=== PATIENT | male | born 1975 | race American Indian/Alaskan Native ===

== ENCOUNTER 2021-02-08 19:06 | Emergency (ER) | payer SELFPAY ==
[2021-02-09] MEDS ORDERED: ACETAMINOPHEN 500 MG TAB PO ONE (04:58)
[2021-02-09] MEDS ORDERED: IBUPROFEN 600 MG TAB PO ONE (04:58)
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
[2021-02-09 05:50] VITALS: BP 144/90
== END 2021-02-09 05:57 | disposition home or self-care (01) ==
LOC: ED 19:06
DX: S39.012A Strain of muscle, fascia and tendon of lower back, initial encounter (principal); S86.911A Strain of unspecified muscle(s) and tendon(s) at lower leg level, right leg, initial encounter; I10 Essential (primary) hypertension; Z79.899 Other long term (current) drug therapy; X58.XXXA Exposure to other specified factors, initial encounter; Y93.89 Activity, other specified; Y92.89 Other specified places as the place of occurrence of the external cause; Y99.8 Other external cause status
CPT/HCPCS: 99283

== ENCOUNTER 2021-09-04 03:40 | Emergency (ER) | payer SELFPAY ==
[2021-09-04] MEDS ORDERED: LIDOCAINE (4%) 40 MG/ML TOPICAL SOLN 50 ML BOTTLE TP ONE (04:38)
[2021-09-04] MEDS ORDERED: METOCLOPRAMIDE 10 MG TAB PO ONE (04:38)
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
[2021-09-04 05:09] LABS: Basophils % (Auto) 1.3 % (0.0-1.8); Eosinophils # (Auto) 0.2 K/mm3 (0.0-0.4); Eosinophils % (Auto) 4.6 % (0.0-4.3); Hematocrit 40.2 % (35.5-45.6); Hemoglobin 12.6 gm/dl (11.8-15.2); Mean Corpuscular HGB Conc 31 % (32-34); Mean Corpuscular Volume 80 fl (84-94); Monocytes # (Auto) 0.6 K/mm3 (0.0-0.8); Monocytes % (Auto) 14.6 % (0.0-7.3); Platelet Count 317 K/mm3 (140-440); Red Blood Count 5.05 M/mm3 (3.65-5.03); Red Cell Distribution Width 16.5 % (13.2-15.2)
[2021-09-04 05:23] LABS: Alanine Aminotransferase 31 units/L (7-56); Albumin 4.2 g/dL (3.9-5); BUN/Creatinine Ratio 21; Blood Urea Nitrogen 21 mg/dL (9-20); Calcium 9.5 mg/dL (8.4-10.2); Hemolysis Index 7
[2021-09-04] MEDS ORDERED: LACTATED RINGERS 2,000 ML IV ONE (05:30)
--- NOTE | 2021-09-04 06:00 | Cat Scan Report ---
CT head without contrast INDICATION : headache. TECHNIQUE: Axial imaging performed from the skull apex through the skull base without the use of con trast. All CT scans at this location are performed using CT dose reduction for ALARA by means of aut omated exposure control. COMPARISON: None FINDINGS: Parenchyma: No mass, stroke or hemorrhage. Mild atrophy for age. Ventricles: Ventricles are normal in size and appear symmetric. Soft tissues: Soft tissues including the orbits appear normal. Bones: No acute osseous abnormality. Sinuses: Sinuses and mastoid air cells are clear. IMPRESSION: Mild atrophy for age. Signer Name: Juanito Nowak MD Signed: 09/04/2021 5:56 AM Workstation Name: [id number]
[2021-09-04 06:02] VITALS: BP 136/88
== END 2021-09-04 07:13 | disposition home or self-care (01) ==
LOC: ED 03:40
DX: R51.9 Headache, unspecified (principal); R60.9 Edema, unspecified; R74.8 Abnormal levels of other serum enzymes; R79.89 Other specified abnormal findings of blood chemistry; D72.819 Decreased white blood cell count, unspecified; I10 Essential (primary) hypertension; F17.200 Nicotine dependence, unspecified, uncomplicated
CPT/HCPCS: 36415; 70450; 80053; 82550; 83735; 85025; 96360; 99284; J7120; 80320; J3490; G0480

== ENCOUNTER 2021-09-28 | Emergency (ER) | payer SELFPAY ==
[2021-09-28 00:06] VITALS: BP 162/105
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
== END 2021-09-28 02:25 | disposition home or self-care (01) ==
LOC: ED
DX: J01.90 Acute sinusitis, unspecified (principal); R05.9 Cough, unspecified; I10 Essential (primary) hypertension; F17.290 Nicotine dependence, other tobacco product, uncomplicated; Z79.899 Other long term (current) drug therapy; Z98.890 Other specified postprocedural states
CPT/HCPCS: 99283

== ENCOUNTER 2022-04-09 02:52 | Emergency (ER) | payer OTHER ==
[2022-04-09 03:15] VITALS: BP 148/103
--- NOTE | 2022-04-09 10:47 | Electrocardiograph Report ---
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
== END 2022-04-09 05:00 | disposition left against medical advice (07) ==
LOC: ED 02:52
DX: R07.9 Chest pain, unspecified (principal); Z53.21 Procedure and treatment not carried out due to patient leaving prior to being seen by health care provider
CPT/HCPCS: 36415; 84484; 93005

== ENCOUNTER 2022-04-27 23:01 | Emergency (ER) | payer OTHER ==
[2022-04-27 23:17] VITALS: BP 152/100
== END 2022-04-27 23:45 ==
LOC: ED 23:01
DX: R06.02 Shortness of breath (principal); Z53.21 Procedure and treatment not carried out due to patient leaving prior to being seen by health care provider